=== PATIENT | male | born 1985 | race Caucasian/White ===

== ENCOUNTER 2021-02-21 09:34 | Outpatient (CLI) | payer OTHER ==
[2021-02-22 01:17] LABS: SARS-CoV-2 PCR by NAA Not Detected (NotDetected)
== END 2021-02-21 09:35 | disposition home or self-care (01) ==
LOC: CSHLAB 09:34
PROVIDERS: ATTEND Surgery
DX: Z20.822 Contact with and (suspected) exposure to COVID-19 (principal); K40.21 Bilateral inguinal hernia, without obstruction or gangrene, recurrent
CPT/HCPCS: 87635; U0003; U0005

== ENCOUNTER 2021-02-24 05:51 | Day surgery (SDC) | payer OTHER ==
[2021-02-22 15:53] VITALS: BMI 27.9
[2021-02-24] MEDS ORDERED: Bupivacaine PF 0.5% 30 ML VIAL ONE (06:38)
[2021-02-24] MEDS ORDERED: Lidocaine 1% MPF 2 ML VIAL ONE (06:46)
[2021-02-24] MEDS ORDERED: Midazolam HCl 2 mg/2 ml Vial ONE ×2 (07:05→07:28)
[2021-02-24] MEDS ORDERED: PROPOFOL 20 ML ONE (07:28)
[2021-02-24] MEDS ORDERED: Ketorolac Tromethamine 30 MG/ML VIAL ONE (07:28)
[2021-02-24] MEDS ORDERED: Fentanyl 100 MCG/2 ML VIAL ONE (07:28)
[2021-02-24] MEDS ORDERED: EPINEPHrine 1 MG/10 ML Abboject SYRINGE ONE (08:28)
[2021-02-24] MEDS ORDERED: HYDROcodone/Acetaminophen 5/325 mg Tablet PO PRN (09:05)
[2021-02-24] MEDS ORDERED: HYDROcodone/Acetaminophen 5/325 mg Tablet ONE (09:46)
== END 2021-02-24 11:15 | disposition home or self-care (01) ==
LOC: CSHSDC 05:51
PROVIDERS: ATTEND Surgery
PROC: 0YUA4JZ Supplement Bilateral Inguinal Region with Synthetic Substitute, Percutaneous Endoscopic Approach (ICD-10-PCS; principal; 2021-02-24)
DX: K40.21 Bilateral inguinal hernia, without obstruction or gangrene, recurrent (principal); I10 Essential (primary) hypertension
CPT/HCPCS: J0171; J0690; J1885; J2250; J2704; J3010; S0020